=== PATIENT | female | born 1945 | race Caucasian/White ===

== ENCOUNTER 2023-02-19 10:48 | Inpatient (IN) | payer OTHER ==
[~2023-02-19] VITALS: Ht 154.9 cm; Wt 49.9 kg
[~2023-02-19 10:48] MED LIST: ALBU.083IS IH; AZIT250 PO; Aspir 8181 MG PO; FISH OIL 1,2001 EAC7 PO; FLUSAL1005 IH; LISI20 PO; LISI5 PO; PRED20 PO
[2023-02-19 11:28] LABS: BASOPHILS ABSOLUTE AUTO 0.05 K/mm3 (0.00-0.23); BASOPHILS PERCENT AUTO 0 % (0-2); EOSINOPHILS ABSOLUTE AUTO 0.02 K/mm3 (0.00-0.68); EOSINOPHILS PERCENT AUTO 0 % (0-6); Hemoglobin 12.8 g/dL (11.5-16.0); IMMATURE GRAN ABSOLUTE AUTO 0.09 K/mm3 (0.00-0.10); IMMATURE GRAN PERCENT AUTO 1 % (0-1); LYMPHOCYTES ABSOLUTE AUTO 0.71 K/mm3 (0.84-5.20); LYMPHOCYTES PERCENT AUTO 5 % (21-46); MONOCYTES ABSOLUTE AUTO 0.86 K/mm3 (0.16-1.47); MONOCYTES PERCENT AUTO 7 % (4-13); Mean Corpuscular HGB 34.5 pg (26.0-34.0); Mean Corpuscular HGB Conc 36.6 g/dL (31.5-36.5); Mean Corpuscular Volume 94 fL (80-100); Mean Platelet Volume 9.1 fL (9.1-12.4); NEUTROPHILS ABSOLUTE AUTO 11.42 K/mm3 (1.96-9.15); NEUTROPHILS PERCENT AUTO 87 % (41-73); Platelet Count 364 K/mm3 (150-400); RDW Coefficient Variation 11.8 % (11.7-14.2); Red Blood Cell Count 3.71 M/mm3 (3.80-5.20); White Blood Cell Count 13.15 K/mm3 (4.00-11.30)
[2023-02-19 12:06] LABS: Albumin, Blood 3.6 g/dL (3.4-5.0); Albumin/Globulin Ratio 0.9 (0.8-1.8); Bilirubin, Total 0.2 mg/dL (0.1-1.0); Bun/Creatinine Ratio 23.5 (12.0-20.0); Calcium, Blood 9.6 mg/dL (8.5-10.1); Creatinine, Blood 1.19 mg/dL (0.40-1.00); Globulin, Blood 4.1 g/dL (2.2-4.0); Potassium, Blood 3.3 mmol/L (3.5-5.5); Total Protein, Blood 7.7 g/dL (6.4-8.2)
[2023-02-19 14:21] LABS: Source, Urine Clean Catch
[2023-02-19 15:53] LABS: Appearance, Urine Hazy (Clear); Bilirubin, Urine Neg (Neg); Blood, Urine 3+ (Neg); Color, Urine Yellow (P-Yellow); Glucose Qualitative, Urine Neg (Neg); Ketones, Urine 2+ (Neg); Leukocyte Esterase, Urine 3+ (Neg); Nitrite, Urine Pos (Neg); Protein, Urine 2+ (Neg); Specific Gravity, Urine 1.015 (1.003-1.022); Urobilinogen, Urine NORM (Normal)
[2023-02-19 16:17] LABS: White Blood Cells, Urine 25-50 /hpf (0-5)
[2023-02-19 16:18] LABS: Bacteria Many /hpf; Hyaline Casts 0-2 /lpf (0-2); Squamous Epithelial Cells Few /hpf (Few)
[2023-02-19 18:00] VITALS: BP 150/60
[2023-02-19 18:53] LABS: Calcium, Blood 8.5 mg/dL (8.5-10.1); Creatinine, Blood 0.96 mg/dL (0.40-1.00); Potassium, Blood 2.5 mmol/L (3.5-5.5)
[2023-02-19 19:59] VITALS: BP 130/91
[2023-02-20 00:08] VITALS: BP 132/82
[2023-02-20 03:57] VITALS: BP 133/70
[2023-02-20 04:21] LABS: BASOPHILS ABSOLUTE AUTO 0.04 K/mm3 (0.00-0.23); BASOPHILS PERCENT AUTO 0 % (0-2); EOSINOPHILS ABSOLUTE AUTO 0.03 K/mm3 (0.00-0.68); EOSINOPHILS PERCENT AUTO 0 % (0-6); Hematocrit 30.3 % (33.0-51.0); Hemoglobin 10.8 g/dL (11.5-16.0); IMMATURE GRAN ABSOLUTE AUTO 0.05 K/mm3 (0.00-0.10); IMMATURE GRAN PERCENT AUTO 1 % (0-1); LYMPHOCYTES ABSOLUTE AUTO 1.83 K/mm3 (0.84-5.20); LYMPHOCYTES PERCENT AUTO 17 % (21-46); MONOCYTES ABSOLUTE AUTO 1.09 K/mm3 (0.16-1.47); MONOCYTES PERCENT AUTO 10 % (4-13); Mean Corpuscular HGB Conc 35.6 g/dL (31.5-36.5); Mean Corpuscular Volume 95 fL (80-100); Mean Platelet Volume 9.3 fL (9.1-12.4); NEUTROPHILS ABSOLUTE AUTO 7.53 K/mm3 (1.96-9.15); NEUTROPHILS PERCENT AUTO 71 % (41-73); Platelet Count 320 K/mm3 (150-400); RDW Coefficient Variation 11.7 % (11.7-14.2); RDW Standard Deviation 40.4 fL (35.1-46.3); Red Blood Cell Count 3.18 M/mm3 (3.80-5.20); White Blood Cell Count 10.57 K/mm3 (4.00-11.30)
[2023-02-20 05:20] LABS: Albumin, Blood 2.6 g/dL (3.4-5.0); Albumin/Globulin Ratio 0.8 (0.8-1.8); Bilirubin, Total 0.2 mg/dL (0.1-1.0); Bun/Creatinine Ratio 20.5 (12.0-20.0); Calcium, Blood 8.6 mg/dL (8.5-10.1); Creatinine, Blood 0.88 mg/dL (0.40-1.00); Globulin, Blood 3.4 g/dL (2.2-4.0); Potassium, Blood 2.8 mmol/L (3.5-5.5)
--- NOTE | 2023-02-20 06:01 | NUR ---
SHIFT SUMMARY NO ACUTE CHANGES TO REPORT OVERNIGHT, PT HAS RESTED MOST OF THE NIGHT. PT STILL SORE FROM THE FALL SHE HAD AT HOME BEFORE COMING INTO THE HOSPTIAL. MEDICATED WITH TYLENOL WITH EFFECT. PT HAD A LOW GRADE FEVER AT SHIFT CHANGE THAT HAS SINCE TRENDED DOWN, SHE HAS BEEN AFEBRILE MOST OF THE NIGHT. VITALS ARE STABLE. PT HAS RECEIVED IVF ORDERED. SHE IS TOLERATING PO INTAKE, AND HAS BEEN VOIDING, PT IS INCONTINENT. NEURO CHECKS Q8HR, NO NEURO DEFICITS NOTED THIS SHIFT. PT IS A/OX4. RESP E/U. NO RESPIRATORY DISTRESS. BED IN LOWEST POSITION, CALL LIGHT WITHIN REACH.
[2023-02-20 07:22] VITALS: BP 144/68
--- NOTE | 2023-02-20 13:06 | NUR ---
UPDATE PT STATES SHE DRINKS DAILY. 2 GLASSES DAILY. PT TREMULOUS AT REST. MD NOTIFIED. ORDERS FOR CIWA PROTOCOL TO BE PLACED.
--- NOTE | 2023-02-20 15:13 | NUR ---
UPDATE DURING NEURO ASSESSMENT PT NOTED TO HAVE WEAKNESS ON R SIDE. MD AT BEDSIDE. MD TO PLACE ORDERS. PLAN FOR CT. PT ALSO COMPLAINS OF BURNING FROM IV K+. PLAN TO D/C AND RECHECK LEVELS AT THIS TIME. WILL CONT TO MONITOR.
[2023-02-20 15:17] VITALS: BP 147/64
[2023-02-20 15:53] LABS: Bun/Creatinine Ratio 17.1 (12.0-20.0); Calcium, Blood 8.4 mg/dL (8.5-10.1); Creatinine, Blood 0.76 mg/dL (0.40-1.00); Magnesium, Blood 1.5 mg/dL (1.6-2.4); Potassium, Blood 3.6 mmol/L (3.5-5.5)
--- NOTE | 2023-02-20 17:13 | NUR ---
UPDATE PT PULLED OUT IV. CIWA 9. MEDICATED PER EMAR.
--- NOTE | 2023-02-20 17:56 | NUR ---
SHIFT SUMMARY PT ALERT AND ORIENTD X 4. FORGETFUL. PULLED OUT IV. BED ALARM IN PLACE. R SIDED WEAKNESS NOTED THIS AFTERNOON. MD AT BEDSIDE TO MARY. NO PLANS FOR CT AT THIS TIME. MD TO RE-EVALUATE IN AM. HR STABLE. BP STABLE. NO CP OR PRESSURE REPORTED.OXYGEN SATURATION MAINTAINED ABOVE 92% ON RA. PT INCONTINENT OF URINE AND STOOL AT TIMES. ATTENDS IN PLACE. Q2 TURNS. PT WORKED WITH PT/OT THIS AFTERNOON. PLANNING FOR SNF AT DISCHARGE AT THIS TIME. CIWA CURRENTLY 9. MEDICATED WITH 25 MG LIBRIUM, SEE EMAR. CALL LIGHT WITHIN REACH. WILL CONT TO MONITOR UNTIL REPORT GIVEN TO NIGHTSHIFT RN.
--- NOTE | 2023-02-20 18:10 | NUR ---
UPDATE MD NOTIFIED OF MAG LEVEL. ORDERS TO BE PLACED.
[2023-02-20 19:41] VITALS: BP 133/61
[2023-02-21 03:32] VITALS: BP 143/73
[2023-02-21 05:00] LABS: Bun/Creatinine Ratio 13.7 (12.0-20.0); Calcium, Blood 8.5 mg/dL (8.5-10.1); Creatinine, Blood 0.73 mg/dL (0.40-1.00); Potassium, Blood 3.1 mmol/L (3.5-5.5)
--- NOTE | 2023-02-21 05:12 | NUR ---
SHIFT SUMMARY NO ACUE CHANGES THIS SHIFT. VSS. AO BUT DOES NEED SOME REORIENTATION AT TIMES. CIWA <8 FOR ENTIREITY OF SHIFT. IN SR/ST. ON RA. INC AT TIMES. ATTENDS CHECKS IN PLACE. PT HAS BEEN COOPERATIVE WITH CARE. HAS NOT BEEN IMPULSIVE THIS SHIFT. SLEPT FOR MAJORITY. FAMILY UPDATED OF PT STATUS. BED ALARM REMAINS ON.
[2023-02-21 07:51] VITALS: BP 113/66
[2023-02-21 13:40] LABS: Bun/Creatinine Ratio 13.9 (12.0-20.0); Calcium, Blood 8.6 mg/dL (8.5-10.1); Creatinine, Blood 0.79 mg/dL (0.40-1.00); Potassium, Blood 3.5 mmol/L (3.5-5.5)
--- NOTE | 2023-02-21 16:20 | NUR ---
PT CHART REVIEWED FOR TRANSFER
[2023-02-21 16:22] VITALS: BP 136/64
--- NOTE | 2023-02-21 18:05 | NUR ---
SHIFT SUMMARY PT ALERT AND ORIENTED X 4. CIWA 0 T/O SHIFT. NO CP REPORTED. HR STABLE. BP STABLE. OXYGEN SATURATION MAINTAINED ABOVE 95% ON RA. AFEBRILE T/O SHIFT. 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 PT ABLE TO TURN SELF IN BED NEEDED. PT UP IN CHAIR FOR MEALS. MARIE WELL. PLAN FOR D/C TO SNF. NO ACUTE CHANGES T/O SHIFT. REPORT GIVEN TO MEDICAL FLOOR RN. PT TX TO MEDICAL FLOOR ROOM 310 WITH ALL BELONGINGS BY SOAKER [employer] WORKER.
--- NOTE | 2023-02-21 18:24 | NUR ---
PT ARRIVED TO MEDICAL FLOOR FROM PCU AT THIS TIME 1X ASSIST TO BED
[2023-02-21] MEDS ORDERED: FLUT1DIS5 INH (18:35)
[2023-02-21] MEDS ORDERED: LISINOPRIL-HCT1 EAC1 PO (18:35)
[2023-02-21] MEDS ORDERED: ESTRADIOL0.5 MG PO (18:36)
--- NOTE | 2023-02-21 19:04 | NUR ---
UPDATE PT'S DAUGHTER CALLED FOR UPDATE. THIS RN UPDATED PT ON TRANSFER TO [facility] AND PROVIDED UPDATE REGARDING PT STATUS AND CARE.
[2023-02-21 19:44] VITALS: BP 157/73
[2023-02-22 03:43] VITALS: BP 143/68
[2023-02-22 05:45] LABS: Bun/Creatinine Ratio 14.9 (12.0-20.0); Calcium, Blood 8.1 mg/dL (8.5-10.1); Creatinine, Blood 0.67 mg/dL (0.40-1.00); Magnesium, Blood 1.9 mg/dL (1.6-2.4); Potassium, Blood 3.4 mmol/L (3.5-5.5)
--- NOTE | 2023-02-22 06:29 | NUR ---
SHIFT SUMMARY PT LAYING IN BED DURING BEDSIDE ROUNDS- PT DENIED PAIN/SOB- PT TOOK SCHEDULED HS MED WITHOUT PROBLEMS, PT NEURO CHECKS WNL- PT USED CALL LIGHT APPROPRIATELY T/O NIGHT, BED LOW POSITION, CALL LIGHT WITHIN REACH, BED ALARM IN PLACE
[2023-02-22 07:59] VITALS: BP 143/70
[2023-02-22] MEDS ORDERED: LEVO750 PO (14:56)
[2023-02-22] MEDS ORDERED: VISBIOME 112.51 EACH PO (14:56)
--- NOTE | 2023-02-22 16:39 | NUR ---
DC HOME WRITTEN & VERBAL DC INSTRUCTIONS GIVEN TO PT WITH FAMILY PRESENT, ALL VERBALIZED GOOD UNDERSTANDING. TELE DC'D, HUMAN RESOURCES ASSOCIATE NOTIFIED. PIV DC'D WITH CATH TIP INTACT, NO REDNESS OR SWELLING NOTED. NEW SCRIPTS FAXED TO [facility] PER PT REQUEST. PT TO PV WITH ALL PERSONAL BELONGINGS VIA W/C.
== END 2023-02-22 17:06 | disposition home or self-care (01) | DRG 871 ==
LOC: ER 10:48 → PCU 17:46 → MEDS 02-21 18:19
PROVIDERS: Family Medicine; Physician Assistant; ADMIT Hospitalist
DX: A41.50 Gram-negative sepsis, unspecified (principal); G92.8 Other toxic encephalopathy; N17.9 Acute kidney failure, unspecified; E87.1 Hypo-osmolality and hyponatremia; N39.0 Urinary tract infection, site not specified; J44.9 Chronic obstructive pulmonary disease, unspecified; R65.20 Severe sepsis without septic shock; E86.0 Dehydration; R74.8 Abnormal levels of other serum enzymes; R29.6 Repeated falls; I10 Essential (primary) hypertension; E87.8 Other disorders of electrolyte and fluid balance, not elsewhere classified; S09.90XA Unspecified injury of head, initial encounter; E87.6 Hypokalemia; M54.9 Dorsalgia, unspecified; W18.30XA Fall on same level, unspecified, initial encounter; Z88.2 Allergy status to sulfonamides; Z88.8 Allergy status to other drugs, medicaments and biological substances; Z79.82 Long term (current) use of aspirin; Z79.899 Other long term (current) drug therapy; Z79.52 Long term (current) use of systemic steroids; Z79.811 Long term (current) use of aromatase inhibitors
CPT/HCPCS: 36415; 51701; 70450; 71045; 72220; 80048; 80053; 81001; 83605; 83690; 83735; 84443; 84484; 85025; 87040; 87077; 87086; 87186; 93005; 93010; 94640; 94664; 94760; 96361-59; 96365-59; 97112; 97116; 97162; 97165; 97530; 97535; 99285-25; A9270; J0696; J1650; J2543; J3475; J3480; J7030; J7050; J7120

== ENCOUNTER 2024-11-23 23:15 | Emergency (ER) | payer OTHER ==
[~2024-11-23] VITALS: Ht 154.9 cm; Wt 52.2 kg
[~2024-11-23 23:15] MED LIST changes: +ESTRADIOL0.5 MG PO; +FLUT1DIS5 INH; +LEVO750 PO; +LISINOPRIL-HCT1 EAC1 PO; +VISBIOME 112.51 EACH PO
[2024-11-23 23:37] VITALS: BP 128/65
[2024-11-23 23:42] LABS: BASOPHILS ABSOLUTE AUTO 0.08 K/mm3 (0.00-0.23); BASOPHILS PERCENT AUTO 1 % (0-2); EOSINOPHILS ABSOLUTE AUTO 0.19 K/mm3 (0.00-0.68); EOSINOPHILS PERCENT AUTO 3 % (0-6); Hematocrit 33.8 % (33.0-51.0); Hemoglobin 11.4 g/dL (11.5-16.0); IMMATURE GRAN ABSOLUTE AUTO 0.01 K/mm3 (0.00-0.10); IMMATURE GRAN PERCENT AUTO 0 % (0-1); LYMPHOCYTES ABSOLUTE AUTO 2.02 K/mm3 (0.84-5.20); LYMPHOCYTES PERCENT AUTO 36 % (21-46); MONOCYTES ABSOLUTE AUTO 0.44 K/mm3 (0.16-1.47); MONOCYTES PERCENT AUTO 8 % (4-13); Mean Corpuscular HGB 34.4 pg (26.0-34.0); Mean Corpuscular HGB Conc 33.7 g/dL (31.5-36.5); Mean Corpuscular Volume 102 fL (80-100); Mean Platelet Volume 9.1 fL (9.1-12.4); NEUTROPHILS ABSOLUTE AUTO 2.84 K/mm3 (1.96-9.15); NEUTROPHILS PERCENT AUTO 51 % (41-73); Platelet Count 247 K/mm3 (150-400); RDW Coefficient Variation 13.5 % (11.7-14.2); RDW Standard Deviation 50.5 fL (35.1-46.3); Red Blood Cell Count 3.31 M/mm3 (3.80-5.20); White Blood Cell Count 5.58 K/mm3 (4.00-11.30)
[2024-11-24 00:11] LABS: Albumin, Blood 3.6 g/dL (3.4-5.0); Albumin/Globulin Ratio 0.9 (0.8-1.8); Bilirubin, Total 0.2 mg/dL (0.1-1.0); Bun/Creatinine Ratio 20.2 (12.0-20.0); Creatinine, Blood 0.89 mg/dL (0.40-1.00); Globulin, Blood 3.9 g/dL (2.2-4.0); Potassium, Blood 3.3 mmol/L (3.5-5.5); Total Protein, Blood 7.5 g/dL (6.4-8.2)
[2024-11-24] MEDS ORDERED: Ibuprofen 600 MG Tab PO ONE (00:55)
== END 2024-11-24 00:58 | disposition home or self-care (01) ==
LOC: ER 23:15
PROVIDERS: Emergency Medicine
DX: S00.01XA Abrasion of scalp, initial encounter (principal); W18.30XA Fall on same level, unspecified, initial encounter; J44.9 Chronic obstructive pulmonary disease, unspecified; Z88.0 Allergy status to penicillin; Z88.1 Allergy status to other antibiotic agents; Z88.5 Allergy status to narcotic agent; Z79.899 Other long term (current) drug therapy; Z79.890 Hormone replacement therapy; Z79.1 Long term (current) use of non-steroidal anti-inflammatories (NSAID)
CPT/HCPCS: 70450; 72125; 80053; 85025; 93005; 93010; 99284-25; A9270